=== PATIENT | male | born 1995 | race Caucasian/White ===

== ENCOUNTER 2017-10-09 00:09 | Emergency (ER) | payer SELFPAY ==
[2017-10-09 00:12] VITALS: TEMP 98
[2017-10-09 00:49] LABS: COLLECTION METHOD CLEAN CATCH
[2017-10-09 00:54] LABS: PH 7 (5-8); SQUAMOUS EPITHELIAL 0-2 /hpf; URINE APPEARANCE Clear; URINE BACTERIA None Seen /hpf; URINE BILIRUBIN Negative (NEGATIVE); URINE BLOOD Negative (NEGATIVE); URINE COLOR Straw; URINE GLUCOSE Negative (NEGATIVE); URINE KETONE Negative (NEGATIVE); URINE LEUKOCYTE ESTERASE 1+ (NEGATIVE); URINE NITRATE Negative (NEGATIVE); URINE PROTEIN(semi-quant) Negative (NEGATIVE); URINE RBC 0-2 /hpf; URINE UROBILINOGEN Negative (NEGATIVE)
[2017-10-09] MEDS ORDERED: CIPRO 250MG TA250 MG PO (01:19)
[2017-10-09 01:45] VITALS: BP 133/85; PULSE 65
== END 2017-10-09 01:45 | disposition home or self-care (01) ==
LOC: COL.ER 00:09
PROVIDERS: Physician Assistant
DX: A56.01 Chlamydial cystitis and urethritis (principal); N39.0 Urinary tract infection, site not specified
CPT/HCPCS: J0696

== ENCOUNTER → 2018-02-26 | Outpatient (CLI) | payer SELFPAY ==
[~2018-02-26] MED LIST: CIPRO 250MG TA250 MG PO
[2018-02-26 15:18] LABS: BASO % 0.4 % (0.0-2.0); EOS % 0.4 % (0-4.0); GRAN # 4.8 (1.4-6.5); GRAN % 65.7 % (42.2-75.2); HEMATOCRIT 44.2 % (42.0-52.0); HEMOGLOBIN 15.2 g/dl (13.5-18.0); LYMPH # 1.4 (1.2-3.4); LYMPH % 19.4 % (20.0-51.0); MEAN CELL VOLUME 90 fl (80.0-100.0); MEAN CORPUSCULAR HEMOGLOBIN 31 pg (27.0-31.0); MEAN CORPUSCULAR HGB CONC 34 g/dl (33.0-37.0); MEAN PLATELET VOLUME 9.2 fl (7.4-10.4); MONO % 13.8 % (1.7-9.3); PLATELET COUNT 289 K/mm3 (130-400); RED BLOOD COUNT 4.89 M/mm3 (4.20-5.60); REDCELL DISTRIBUTION WIDTH-CV 13.4 % (11.5-14.5)
== END ==
LOC: COL.LAB 14:43
PROVIDERS: Family Medicine
DX: R05 Cough (principal)

== ENCOUNTER 2018-07-13 19:25 | Emergency (ER) | payer BC ==
[~2018-07-13] VITALS: Ht 188 cm; Wt 90.9 kg
[2018-07-13 19:28] VITALS: BP 140/72; TEMP 99.7
[2018-07-13] MEDS ORDERED: ZITHROMAX Z PA250 MG PO (19:58)
[2018-07-13 20:11] VITALS: PULSE 97
== END 2018-07-13 20:21 | disposition home or self-care (01) ==
LOC: COL.ER 19:25
DX: J40 Bronchitis, not specified as acute or chronic (principal)